=== PATIENT | female | born 1975 | race Caucasian/White ===

== ENCOUNTER 2024-04-20 13:41 | Emergency (ER) | payer SELFPAY | END 2024-04-20 17:22 | disposition left against medical advice (07) | LOC: ED 13:41 | DX: R10.9 Unspecified abdominal pain (principal); Z53.21 Procedure and treatment not carried out due to patient leaving prior to being seen by health care provider ==

== ENCOUNTER 2024-04-23 12:09 | Emergency (ER) | payer OTHER ==
[~2024-04-23] VITALS: Ht 154.9 cm; Wt 59.0 kg
== END 2024-04-23 18:13 | disposition home or self-care (01) ==
LOC: ED 12:09
DX: R10.33 Periumbilical pain (principal); Z88.0 Allergy status to penicillin; Z53.01 Procedure and treatment not carried out due to patient smoking; Z32.02 Encounter for pregnancy test, result negative; Z53.29 Procedure and treatment not carried out because of patient's decision for other reasons

== ENCOUNTER 2024-06-22 16:08 | Emergency (ER) | payer OTHER ==
[~2024-06-22] VITALS: Ht 154.9 cm; Wt 59.0 kg
[2024-06-22] MEDS ORDERED: Dexamethasone Sodium Phospha 10 MG/1 ML VIAL IM ONE (16:35)
[2024-06-22] MEDS ORDERED: METHOCARBAMOL 750 MG TAB PO ONE (16:45)
[2024-06-22] MEDS ORDERED: METHOCARBAMOL500 M1 PO (16:45)
[2024-06-22] MEDS ORDERED: PREDNISONE50 MG PO (16:45)
== END 2024-06-22 17:52 | disposition home or self-care (01) ==
LOC: ED 16:08
DX: S16.1XXA Strain of muscle, fascia and tendon at neck level, initial encounter (principal); I10 Essential (primary) hypertension; I25.2 Old myocardial infarction; F17.290 Nicotine dependence, other tobacco product, uncomplicated; Z90.49 Acquired absence of other specified parts of digestive tract; Z88.0 Allergy status to penicillin; V49.49XA Driver injured in collision with other motor vehicles in traffic accident, initial encounter; Y93.89 Activity, other specified; Y92.410 Unspecified street and highway as the place of occurrence of the external cause; Y99.8 Other external cause status

== ENCOUNTER 2025-02-12 15:26 | Emergency (ER) | payer OTHER ==
[~2025-02-12] VITALS: Ht 154.9 cm; Wt 83.9 kg
[~2025-02-12 15:26] MED LIST: METHOCARBAMOL500 M1 PO; PREDNISONE50 MG PO
[2025-02-12] MEDS ORDERED: GABAPENTIN600 MG PO (16:01)
[2025-02-12] MEDS ORDERED: QUETIAPINE FUMA50 M1 PO (16:01)
[2025-02-12] MEDS ORDERED: BUPRENORPHINE-1 EAC2 SL (16:01)
[2025-02-12] MEDS ORDERED: TOPIRAMATE100 M2 PO (16:02)
[2025-02-12] MEDS ORDERED: LISINOPRIL20 MG PO (16:02)
[2025-02-12] MEDS ORDERED: TOLTERODINE TART1 M1 PO (16:02)
== END 2025-02-12 17:00 | disposition left against medical advice (07) ==
LOC: ED 15:26
DX: R19.01 Right upper quadrant abdominal swelling, mass and lump (principal); R11.2 Nausea with vomiting, unspecified; R51.9 Headache, unspecified; Z53.21 Procedure and treatment not carried out due to patient leaving prior to being seen by health care provider

== ENCOUNTER 2025-02-28 12:24 | Emergency (ER) | payer OTHER ==
[~2025-02-28] VITALS: Wt 84.4 kg
[~2025-02-28 12:24] MED LIST changes: +BUPRENORPHINE-1 EAC2 SL; +GABAPENTIN600 MG PO; +LISINOPRIL20 MG PO; +QUETIAPINE FUMA50 M1 PO; +TOLTERODINE TART1 M1 PO; +TOPIRAMATE100 M2 PO
[2025-02-28] MEDS ORDERED: IOHEXOL 300 MG/ML 100 ML VIAL IV ONE (12:30)
[2025-02-28 12:43] LABS: BASO % 0.5 % (0.0-1.0); EOS # 0.3 10*3/uL (0.0-0.4); EOS % 3.5 % (1.0-4.0); HEMATOCRIT 42.8 % (37.0-47.0); MEAN CELL VOLUME 91.5 fl (81.0-99.0); MEAN CORPUSCULAR HGB 31.4 pg (27.0-31.0); MEAN CORPUSCULAR HGB CONC 34.3 g/dl (33.0-37.0); MEAN PLATELET VOLUME 10.9 fl (9.6-12.3); MONO # 0.6 10*3/uL (0.1-1.0); MONO % 6.5 % (3.0-9.0); NEUT % 58.4 % (47.0-73.0); PLATELET COUNT AUTOMATED 223 10*3/uL (130-400); RED BLOOD COUNT 4.68 10*6/uL (4.10-5.10); RED CELL DISTRI WIDTH 12.4 % (0-14.5); WHITE BLOOD COUNT 8.5 10*3/uL (4.8-10.8)
[2025-02-28 13:03] LABS: ALKALINE PHOSPHATASE 102 U/L (46-116); BUN 13 mg/dl (9-23); CHLORIDE 111 mmol/L (98-107); ETHYL ALCOHOL < 3.0 mg/dl (<3); LIPASE 37 U/L (12-53); POTASSIUM 3.8 mmol/L (3.4-5.1); SGPT/ALT 12 U/L (5-49); TOTAL PROTEIN 6.8 gm/dL (6.0-8.0)
[2025-02-28 13:08] LABS: URINE AMPHETAMINES Negative (1000ng/ml); URINE BARBITURATES Negative (200ng/ml); URINE BENZODIAZEPINES Negative (200ng/ml); URINE CANNABINOIDS (THC) Negative (50ng/ml); URINE COCAINE Positive (300ng/ml); URINE METHADONE Negative (300ng/ml); URINE OPIATES Negative (300ng/ml); URINE PHENCYCLIDINE Negative (25ng/ml)
[2025-02-28] MEDS ORDERED: IBUPROFEN 400 MG TAB PO ONE (13:15)
[2025-02-28 13:42] LABS: BILIRUBIN Negative (Negative); CLARITY Clear (Clear); COLOR Yellow (Yellow); GLUCOSE Negative (Negative); KETONE Negative (Negative)
[2025-02-28 13:43] LABS: BLOOD Trace-Lysed (Negative); LEUKO ESTERASE 1+ (Negative); NITRITE Negative (Negative); UROBILINOGEN 0.2 E.U./dl (0.0-1.0)
[2025-02-28 13:54] LABS: RBC 0-2 rbc/hpf (0-2)
== END 2025-02-28 15:39 | disposition home or self-care (01) ==
LOC: ED 12:24
PROVIDERS: Internal Medicine
DX: R10.9 Unspecified abdominal pain (principal); F14.10 Cocaine abuse, uncomplicated; R31.9 Hematuria, unspecified; Z88.0 Allergy status to penicillin; Z79.899 Other long term (current) drug therapy

== ENCOUNTER 2025-09-06 15:56 | Emergency (ER) | payer OTHER ==
[~2025-09-06] VITALS: Ht 154.9 cm; Wt 84.1 kg
[2025-09-06] MEDS ORDERED: NAPROSYN500 MG PO (17:52)
== END 2025-09-06 18:14 | disposition home or self-care (01) ==
LOC: ED 15:56
DX: S82.841A Displaced bimalleolar fracture of right lower leg, initial encounter for closed fracture (principal); I10 Essential (primary) hypertension; I25.2 Old myocardial infarction; Z88.0 Allergy status to penicillin; Z79.899 Other long term (current) drug therapy; W01.0XXA Fall on same level from slipping, tripping and stumbling without subsequent striking against object, initial encounter; Y93.K1 Activity, walking an animal; Y92.007 Garden or yard of unspecified non-institutional (private) residence as the place of occurrence of the external cause; Y99.8 Other external cause status

== ENCOUNTER → 2025-09-16 | Day surgery (SDC) | payer OTHER ==
[~2025-09-16] VITALS: Ht 157.4 cm; Wt 80.7 kg
[~2025-09-16] MED LIST changes: +ACETAMINOPHEN 100 ML IV ONE; +BUPIVACAINE LIPOSOME/PF 266 MG/20 ML VIAL IJ ONE; +Bupivacaine Hydrochloride/Ep2 30 ML VIAL ONE; +Dexamethasone Sodium Phospha 4 MG/ML VIAL IV ONE; +HYDROCODONE-AC1 EAC1 PO; +Ketamine Hydrochloride 50 MG/5 ML SYRINGE IV ONE; +Labetalol Hydrochloride 20 MG/4 ML SYR IV ONE; +Lactated Ringer's Solution 1,000 ML IV ONE; +MAGNESIUM SULFATE 1 GM/2 ML VIAL IV ONE; +Midazolam Hydrochloride 2 MG/2 ML VIAL IV ONE; +NAPROSYN500 MG PO; +Ondansetron Hydrochloride 4 MG/2 ML VIAL IV ONE; +PROPOFOL 200 MG/20 ML VIAL IV ONE; +ROCURONIUM BROMIDE 50 MG/5 ML SYRINGE IV ONE; +SEVOFLURANE 250 ML BOT INH ONE; +ceFAZolin sodium/sodium chlor 20 ML IV ONE
[2025-09-16 11:13] VITALS: BP 107/77
[2025-09-16 11:33] LABS: BUN 14 mg/dl (9-23)
[2025-09-16 13:44] VITALS: BP 151/83
[2025-09-16 13:59] VITALS: BP 138/75
[2025-09-16 14:14] VITALS: BP 146/74
[2025-09-16 14:29] VITALS: BP 154/80
[2025-09-16 14:44] VITALS: BP 162/77
== END | disposition home or self-care (01) ==
LOC: SDC 09-12 14:00
PROVIDERS: ATTEND Orthopaedic Surgery
DX: S82.841A Displaced bimalleolar fracture of right lower leg, initial encounter for closed fracture (principal); I25.2 Old myocardial infarction; F32.A Depression, unspecified; G47.30 Sleep apnea, unspecified; F17.200 Nicotine dependence, unspecified, uncomplicated; R56.9 Unspecified convulsions; Z98.890 Other specified postprocedural states; Z88.0 Allergy status to penicillin; Z91.041 Radiographic dye allergy status; X58.XXXA Exposure to other specified factors, initial encounter; Y93.89 Activity, other specified; Y92.89 Other specified places as the place of occurrence of the external cause; Y99.8 Other external cause status

== ENCOUNTER → 2025-09-22 | Outpatient (CLI) | payer OTHER ==
[~2025-09-22] MED LIST changes: -ACETAMINOPHEN 100 ML IV ONE; -BUPIVACAINE LIPOSOME/PF 266 MG/20 ML VIAL IJ ONE; -Bupivacaine Hydrochloride/Ep2 30 ML VIAL ONE; -Dexamethasone Sodium Phospha 4 MG/ML VIAL IV ONE; -Ketamine Hydrochloride 50 MG/5 ML SYRINGE IV ONE; -Labetalol Hydrochloride 20 MG/4 ML SYR IV ONE; -Lactated Ringer's Solution 1,000 ML IV ONE; -MAGNESIUM SULFATE 1 GM/2 ML VIAL IV ONE; -Midazolam Hydrochloride 2 MG/2 ML VIAL IV ONE; -Ondansetron Hydrochloride 4 MG/2 ML VIAL IV ONE; -PROPOFOL 200 MG/20 ML VIAL IV ONE; -ROCURONIUM BROMIDE 50 MG/5 ML SYRINGE IV ONE; -SEVOFLURANE 250 ML BOT INH ONE; -ceFAZolin sodium/sodium chlor 20 ML IV ONE
== END | disposition home or self-care (01) ==
LOC: ORTHO 10:38
PROVIDERS: ATTEND Orthopaedic Surgery
DX: S82.841A Displaced bimalleolar fracture of right lower leg, initial encounter for closed fracture (principal); X58.XXXA Exposure to other specified factors, initial encounter; Y93.89 Activity, other specified; Y92.89 Other specified places as the place of occurrence of the external cause; Y99.8 Other external cause status